=== PATIENT | male | born 1930 | race Caucasian/White ===

== ENCOUNTER 2016-10-10 14:37 | Inpatient (IN) | payer MEDICARE ==
[~2016-10-10] VITALS: Ht 172.7 cm; Wt 100.8 kg
[~2016-10-10 14:37] MED LIST: ALEEVE PO; ECO81 PO; FEOSOL65 M1 PO; FOLIC ACID1 MG PO; GUAIFENESI100 MG/52 PO; KLOR-CON M2020 MEQ; LAC30L PO; LASIX40 MG PO; LEVAQUIN750 MG PO; MEDDP PO; METFORMIN ER500 M1 PO; METOPROLOL TART25 M1 PO; PRI20 PO; PROAIR HFA0.09 MG/A1 INH; SYNTHROID0.05 MG PO; TERAZOSIN HCL2 MG PO; VITAMIN B121000 MCG PO; VITAMIN C500 MG PO; VITAMIN D32000 I2 PO; ZES10 PO; ZOC20 PO
[2016-10-10 16:43] LABS: microscopic required? NO
[2016-10-10 16:52] LABS: urine erythrocyte NEGATIVE (NEGATIVE)
[2016-10-10 16:53] LABS: CALCIUM 8.4 mg/dL (8.5-10.1); CHLORIDE SERUM 104 mmol/L (98-107); CREATININE SERUM 1.1 mg/dL (0.7-1.3); GLUCOSE SERUM 441 mg/dL (74-106); POTASSIUM SERUM 4.8 mmol/L (3.5-5.1); SODIUM SERUM 135 mmol/L (136-145)
[2016-10-10 16:55] LABS: PLATELET COUNT 50 x10^3mcL (130-400); RED CELL DISTRIBUTION WIDTH 14.6 % (11.5-14.5)
[2016-10-10 16:58] LABS: ALBUMIN 2.9 g/dL (3.4-5.0); ALKALINE PHOSPHATASE 166 U/L (46-116); ALT/SGPT 33 U/L (16-63); AST/SGOT 22 U/L (15-37); BILIRUBIN TOTAL 1.21 mg/dL (0.20-1.00); TOTAL PROTEIN, SERUM 5.7 g/dL (6.4-8.2)
[2016-10-10 17:07] LABS: BAND NEUTROPHIL 0 % (0-10); BASOPHIL 0 % (0-2); MONOCYTE 7 % (0-7); SEGMENTED NEUTROPHILS 54 % (37-75); rbc morphology (normal/abnorm) ABNORMAL (NORMAL)
[2016-10-10 18:20] LABS: PHOSPHOROUS 3.3 mg/dL (2.5-4.9)
[2016-10-10 18:28] VITALS: BP 134/45
[2016-10-10 18:28] LABS: FREE T4 0.94 ng/dL (0.76-1.46); FREE THYROXINE INDEX 1.8 ug/dL (1.4-4.5); T4(THYROXINE) 4.9 ug/dL (4.7-13.3)
[2016-10-10 18:29] LABS: T3 TOTAL 0.74 ng/mL
[2016-10-10 18:31] VITALS: Ht 172.7 cm; Wt 100.8 kg
[2016-10-10 18:48] LABS: CHOLESTEROL/HDL RATIO 2.1
[2016-10-10 22:17] VITALS: BP 140/68
[2016-10-11 06:18] VITALS: BP 123/53
[2016-10-11 06:43] LABS: BASOPHIL % 0.9 % (0-2); RED CELL DISTRIBUTION WIDTH 14.4 % (11.5-14.5)
[2016-10-11 07:07] LABS: PLATELET COUNT 48 x10^3mcL (130-400)
[2016-10-11 07:27] LABS: CALCIUM 8.1 mg/dL (8.5-10.1); CHLORIDE SERUM 109 mmol/L (98-107); CREATININE SERUM 0.7 mg/dL (0.7-1.3); GLUCOSE SERUM 168 mg/dL (74-106); MAGNESIUM 2.1 mg/dL (1.8-2.4); PHOSPHOROUS 3.2 mg/dL (2.5-4.9); POTASSIUM SERUM 4.3 mmol/L (3.5-5.1); SODIUM SERUM 144 mmol/L (136-145)
[2016-10-11 09:14] VITALS: BP 114/80
[2016-10-11 13:02] VITALS: BP 124/73
[2016-10-11 18:17] VITALS: BP 138/69
[2016-10-11 21:28] VITALS: BP 152/69
[2016-10-12 06:18] LABS: RED CELL DISTRIBUTION WIDTH 14.4 % (11.5-14.5)
[2016-10-12 06:24] VITALS: BP 94/56
[2016-10-12 06:31] LABS: CALCIUM 8.1 mg/dL (8.5-10.1); CARBON DIOXIDE 26.1 mmol/L (21-32); CHLORIDE SERUM 110 mmol/L (98-107); CREATININE SERUM 0.7 mg/dL (0.7-1.3); GLUCOSE SERUM 95 mg/dL (74-106); MAGNESIUM 1.8 mg/dL (1.8-2.4); PHOSPHOROUS 3.6 mg/dL (2.5-4.9); POTASSIUM SERUM 3.7 mmol/L (3.5-5.1); SODIUM SERUM 140 mmol/L (136-145)
[2016-10-12 08:03] LABS: PLATELET COUNT 52 x10^3mcL (130-400)
[2016-10-12 09:52] VITALS: BP 102/48
[2016-10-12] MEDS ORDERED: LEVEMIR100 U/M1 SQ (10:18)
[2016-10-12] MEDS ORDERED: BG FS (10:18)
[2016-10-12 10:38] VITALS: BP 143/68
[2016-10-12 10:38] LABS: BAND NEUTROPHIL 1 % (0-10); BASOPHIL 0 % (0-2); MONOCYTE 9 % (0-7); SEGMENTED NEUTROPHILS 44 % (37-75)
[2016-10-12 10:40] LABS: PLATELET MORPHOLOGY PLATELETS DECREASED; rbc morphology (normal/abnorm) ABNORMAL (NORMAL)
[2016-10-12] MEDS ORDERED: C500500 MG PO (11:00)
[2016-10-12] MEDS ORDERED: NATURE'S BLEND F1 MG PO (11:19)
== END 2016-10-12 13:37 | disposition home health service (06) | DRG 637 ==
LOC: ED 14:37 → DU 17:15
PROVIDERS: Emergency Medicine; Family Medicine; ADMIT Family Medicine
DX: E11.65 Type 2 diabetes mellitus with hyperglycemia (principal); I50.43 Acute on chronic combined systolic (congestive) and diastolic (congestive) heart failure; N17.0 Acute kidney failure with tubular necrosis; D61.818 Other pancytopenia; E87.1 Hypo-osmolality and hyponatremia; E44.0 Moderate protein-calorie malnutrition; E11.51 Type 2 diabetes mellitus with diabetic peripheral angiopathy without gangrene; I11.0 Hypertensive heart disease with heart failure; I87.2 Venous insufficiency (chronic) (peripheral); N40.0 Benign prostatic hyperplasia without lower urinary tract symptoms; D53.9 Nutritional anemia, unspecified; E66.9 Obesity, unspecified; Z68.34 Body mass index [BMI] 34.0-34.9, adult; Z85.79 Personal history of other malignant neoplasms of lymphoid, hematopoietic and related tissues; Z79.84 Long term (current) use of oral hypoglycemic drugs
CPT/HCPCS: 36600; 82962; 83880; 84439; 97110-GP; 97116-GP; 97530-GP; J1815; J3535; J7030; Q0092

== ENCOUNTER 2017-08-07 20:33 | Inpatient (IN) | payer MEDICARE ==
[~2017-08-07] VITALS: Ht 172.7 cm; Wt 112.0 kg
[~2017-08-07 20:33] MED LIST changes: +BG FS; +C500500 MG PO; +LEVEMIR100 U/M1 SQ; +NATURE'S BLEND F1 MG PO
[2017-08-07 23:41] LABS: BASOPHIL % 0.5 % (0-2)
[2017-08-07 23:43] LABS: PLATELET COUNT 75 x10^3mcL (130-400); RED CELL DISTRIBUTION WIDTH 14.7 % (11.5-14.5)
[2017-08-07 23:45] LABS: CALCIUM 8.4 mg/dL (8.5-10.1); CARBON DIOXIDE 21.4 mmol/L (21-32); CHLORIDE SERUM 102 mmol/L (98-107); CREATININE SERUM 1.6 mg/dL (0.7-1.3); GLUCOSE SERUM 133 mg/dL (74-106); POTASSIUM SERUM 4.7 mmol/L (3.5-5.1); SODIUM SERUM 134 mmol/L (136-145)
[2017-08-07 23:49] LABS: ALKALINE PHOSPHATASE 120 U/L (46-116); ALT/SGPT 41 U/L (16-63); AMYLASE 49 U/L (25-115); AST/SGOT 48 U/L (15-37); BILIRUBIN TOTAL 3.6 mg/dL (0.20-1.00); LIPASE 143 IU/L (73-393); TOTAL PROTEIN, SERUM 6.2 g/dL (6.4-8.2)
[2017-08-07 23:50] LABS: ALBUMIN 3.3 g/dL (3.4-5.0)
[2017-08-07] MEDS ORDERED: LUMIGAN2.5 M1 (23:59)
[2017-08-08] MEDS ORDERED: CITRACAL PETITE1 TAB PO (00:02)
[2017-08-08] MEDS ORDERED: C500500 MG PO (00:02)
[2017-08-08] MEDS ORDERED: MIRALAX17 GM/Dose (00:03)
[2017-08-08 00:54] LABS: T3 TOTAL 0.9 ng/mL
[2017-08-08 01:04] LABS: PHOSPHOROUS 3.6 mg/dL (2.5-4.9)
[2017-08-08 01:21] LABS: FREE T4 1.1 ng/dL (0.76-1.46); T4(THYROXINE) 5.7 ug/dL (4.7-13.3)
[2017-08-08 02:54] VITALS: BP 130/59
[2017-08-08 03:30] LABS: RED BLOOD CELLS 3.34 M/mm3 (4.52-5.90)
[2017-08-08 05:21] VITALS: BP 131/62
[2017-08-08 06:13] LABS: BASOPHIL % 0.3 % (0-2); RED CELL DISTRIBUTION WIDTH 14.4 % (11.5-14.5)
[2017-08-08 06:15] LABS: PLATELET COUNT 66 x10^3mcL (130-400)
[2017-08-08 06:40] LABS: IRON 147 ug/dL (65-170); TOTAL IRON BINDING CAPACITY 285 ug/dL (250-450)
[2017-08-08 06:43] LABS: CALCIUM 8.1 mg/dL (8.5-10.1); CARBON DIOXIDE 20.4 mmol/L (21-32); CHLORIDE SERUM 104 mmol/L (98-107); CREATININE SERUM 2.1 mg/dL (0.7-1.3); GLUCOSE SERUM 119 mg/dL (74-106); MAGNESIUM 2.2 mg/dL (1.8-2.4); PHOSPHOROUS 3.9 mg/dL (2.5-4.9); POTASSIUM SERUM 4.5 mmol/L (3.5-5.1); SODIUM SERUM 134 mmol/L (136-145)
[2017-08-08 09:17] VITALS: BP 136/67
[2017-08-08 12:38] VITALS: BP 148/72
[2017-08-08 17:15] VITALS: BP 93/51
[2017-08-08 19:54] LABS: microscopic required? YES; urine erythrocyte 3+ (NEGATIVE)
[2017-08-08 20:18] VITALS: BP 126/53
[2017-08-09 05:58] VITALS: BP 119/54
[2017-08-09 05:59] LABS: BASOPHIL % 0.4 % (0-2)
[2017-08-09 06:23] LABS: CALCIUM 7.9 mg/dL (8.5-10.1); CARBON DIOXIDE 20.1 mmol/L (21-32); CHLORIDE SERUM 110 mmol/L (98-107); CREATININE SERUM 1.7 mg/dL (0.7-1.3); GLUCOSE SERUM 114 mg/dL (74-106); POTASSIUM SERUM 4.9 mmol/L (3.5-5.1); SODIUM SERUM 141 mmol/L (136-145)
[2017-08-09 06:26] LABS: PLATELET COUNT 56 x10^3mcL (130-400); RED CELL DISTRIBUTION WIDTH 14.6 % (11.5-14.5)
[2017-08-09 09:47] VITALS: BP 122/63
[2017-08-09 10:14] VITALS: Ht 172.7 cm; Wt 112.0 kg
[2017-08-09 13:32] VITALS: BP 126/59
[2017-08-09 16:42] VITALS: BP 117/63
[2017-08-09 21:40] VITALS: BP 160/75
[2017-08-09 23:00] VITALS: BP 149/61
[2017-08-10 06:07] VITALS: BP 161/62
[2017-08-10 06:19] LABS: BASOPHIL % 0.3 % (0-2); RED CELL DISTRIBUTION WIDTH 14.5 % (11.5-14.5)
[2017-08-10 06:20] LABS: CALCIUM 8.2 mg/dL (8.5-10.1); CARBON DIOXIDE 21.4 mmol/L (21-32); CHLORIDE SERUM 114 mmol/L (98-107); CREATININE SERUM 0.9 mg/dL (0.7-1.3); GLUCOSE SERUM 109 mg/dL (74-106); POTASSIUM SERUM 4.6 mmol/L (3.5-5.1); SODIUM SERUM 145 mmol/L (136-145)
[2017-08-10 06:31] LABS: PLATELET COUNT 50 x10^3mcL (130-400)
[2017-08-10] MEDS ORDERED: FLO4 PO (08:01)
[2017-08-10] MEDS ORDERED: KEFLEX500 M1 PO (08:02)
[2017-08-10] MEDS ORDERED: LAC PO (08:02)
[2017-08-10] MEDS ORDERED: ZES10 PO (08:59)
[2017-08-10] MEDS ORDERED: PROSCAR5 MG PO (09:00)
[2017-08-10 09:30] VITALS: BP 137/59
[2017-08-10 11:24] VITALS: BP 137/59
[2017-08-10 11:58] VITALS: BP 137/59
[2017-08-10 17:00] VITALS: BP 134/64; BP 139/64
[2017-08-10 21:11] VITALS: BP 142/62
[2017-08-11 06:22] VITALS: BP 151/72
[2017-08-11 06:22] LABS: CARBON DIOXIDE 24.2 mmol/L (21-32); CHLORIDE SERUM 108 mmol/L (98-107); CREATININE SERUM 0.8 mg/dL (0.7-1.3); GLUCOSE SERUM 109 mg/dL (74-106); POTASSIUM SERUM 4.2 mmol/L (3.5-5.1); SODIUM SERUM 140 mmol/L (136-145)
[2017-08-11 06:36] LABS: BASOPHIL % 0.6 % (0-2)
[2017-08-11 06:54] LABS: PLATELET COUNT 55 x10^3mcL (130-400); RED CELL DISTRIBUTION WIDTH 14.6 % (11.5-14.5)
[2017-08-11 10:03] VITALS: BP 151/69
[2017-08-11 14:29] VITALS: BP 149/72
[2017-08-11 16:04] VITALS: BP 149/72
[2017-08-11 17:11] VITALS: BP 141/67
== END 2017-08-11 18:35 | DRG 697 ==
LOC: ED 20:33 → DU 23:17
PROVIDERS: Emergency Medicine; Family Medicine Sports Medicine
PROC: 0T9B70Z Drainage of Bladder with Drainage Device, Via Natural or Artificial Opening (ICD-10-PCS; principal; 2017-08-08)
DX: N35.9 Urethral stricture, unspecified (principal); N17.0 Acute kidney failure with tubular necrosis; E87.1 Hypo-osmolality and hyponatremia; E44.1 Mild protein-calorie malnutrition; N40.0 Benign prostatic hyperplasia without lower urinary tract symptoms; Z96.653 Presence of artificial knee joint, bilateral; E11.51 Type 2 diabetes mellitus with diabetic peripheral angiopathy without gangrene; E11.22 Type 2 diabetes mellitus with diabetic chronic kidney disease; I12.9 Hypertensive chronic kidney disease with stage 1 through stage 4 chronic kidney disease, or unspecified chronic kidney disease; N18.9 Chronic kidney disease, unspecified; R33.9 Retention of urine, unspecified; R74.0 Nonspecific elevation of levels of transaminase and lactic acid dehydrogenase [LDH]; E83.51 Hypocalcemia; D64.9 Anemia, unspecified; D69.6 Thrombocytopenia, unspecified; Z68.38 Body mass index [BMI] 38.0-38.9, adult; Z91.013 Allergy to seafood; Z98.49 Cataract extraction status, unspecified eye; Z79.899 Other long term (current) drug therapy; Z87.01 Personal history of pneumonia (recurrent)
CPT/HCPCS: 82962; 83880; 84439; 97110-GP; 97116-GP; 97530-GP; J0696; J7030; Q0092

== ENCOUNTER 2018-04-30 11:18 | Inpatient (IN) | payer MEDICARE ==
[2018-04-30] VITALS (9 sets, daily range): BP systolic 79–118; BP diastolic 31–53; Ht 175.3 cm; Wt 104.3 kg
[~2018-04-30] VITALS: Ht 175.3 cm; Wt 104.3 kg
[~2018-04-30 11:18] MED LIST changes: +CITRACAL PETITE1 TAB PO; +FLO4 PO; +KEFLEX500 M1 PO; +LAC PO; +LUMIGAN2.5 M1; +MIRALAX17 GM/Dose; +PROSCAR5 MG PO
[2018-04-30 11:57] LABS: CALCIUM 7.8 mg/dL (8.5-10.1); CARBON DIOXIDE 18.6 mmol/L (21-32); CHLORIDE SERUM 102 mmol/L (98-107); CREATININE SERUM 1.5 mg/dL (0.7-1.3); GLUCOSE SERUM 161 mg/dL (74-106); POTASSIUM SERUM 3.7 mmol/L (3.5-5.1); SODIUM SERUM 134 mmol/L (136-145)
[2018-04-30 11:58] LABS: RED CELL DISTRIBUTION WIDTH 14.9 % (11.5-14.5)
[2018-04-30 12:01] LABS: ALKALINE PHOSPHATASE 113 U/L (46-116); ALT/SGPT 27 U/L (16-63); AST/SGOT 32 U/L (15-37); BILIRUBIN TOTAL 4.37 mg/dL (0.20-1.00)
[2018-04-30 12:18] LABS: ALBUMIN 2.8 g/dL (3.4-5.0); TOTAL PROTEIN, SERUM 5.7 g/dL (6.4-8.2)
[2018-04-30 12:31] LABS: BAND NEUTROPHIL 11 % (0-10); BASOPHIL 0 % (0-2); MONOCYTE 2 % (0-7); SEGMENTED NEUTROPHILS 82 % (37-75)
[2018-04-30 12:32] LABS: rbc morphology (normal/abnorm) ABNORMAL (NORMAL)
[2018-04-30 12:33] LABS: PLATELET MORPHOLOGY PLATELETS DECREASED
[2018-04-30 12:39] LABS: PLATELET COUNT 45 x10^3mcL (130-400)
[2018-04-30 13:10] LABS: CHOLESTEROL/HDL RATIO 1.9
[2018-04-30 13:13] LABS: FREE T4 0.77 ng/dL (0.76-1.46)
[2018-04-30 13:14] LABS: T3 TOTAL 0.55 ng/mL
[2018-04-30 13:15] LABS: FREE THYROXINE INDEX 1.6 ug/dL (1.4-4.5); T4(THYROXINE) 4.1 ug/dL (4.7-13.3)
[2018-04-30] MEDS ORDERED: SUNMARK OMEPRAZ20 MG PO (13:37)
[2018-04-30] MEDS ORDERED: TOPROL XL25 MG PO (13:37)
[2018-04-30] MEDS ORDERED: LISINOPRIL10 MG PO (13:38)
[2018-04-30] MEDS ORDERED: VITAMIN-D1000 IU PO (13:38)
[2018-04-30] MEDS ORDERED: FUROSEMIDE20 MG PO (13:38)
[2018-04-30] MEDS ORDERED: VITAMIN B121000 MCG PO (13:38)
[2018-04-30] MEDS ORDERED: EFFER-K10 MEQ PO (13:40)
[2018-04-30] MEDS ORDERED: LACTULOSE10 GM/152 PO (13:41)
[2018-04-30] MEDS ORDERED: LEVOXYL0.05 MG PO (13:41)
[2018-04-30] MEDS ORDERED: TERAZOSIN HCL2 MG PO (13:41)
[2018-04-30] MEDS ORDERED: NATURE'S BLEND F1 MG PO (13:41)
[2018-04-30 13:54] LABS: UA SPECIFIC GRAVITY 1.025 (1.005-1.035); microscopic required? YES; urine erythrocyte 3+ (NEGATIVE)
[2018-05-01] VITALS (7 sets, daily range): BP systolic 108–134; BP diastolic 52–94
[2018-05-01 03:07] LABS: BASOPHIL % 0.1 % (0-2)
[2018-05-01 03:13] LABS: CALCIUM 7.4 mg/dL (8.5-10.1); CARBON DIOXIDE 16.7 mmol/L (21-32); CHLORIDE SERUM 104 mmol/L (98-107); CREATININE SERUM 1.7 mg/dL (0.7-1.3); GLUCOSE SERUM 171 mg/dL (74-106); MAGNESIUM 1.8 mg/dL (1.8-2.4); POTASSIUM SERUM 4.5 mmol/L (3.5-5.1); SODIUM SERUM 134 mmol/L (136-145)
[2018-05-01 03:33] LABS: RED CELL DISTRIBUTION WIDTH 14.6 % (11.5-14.5)
[2018-05-01 03:34] LABS: PLATELET COUNT 33 x10^3mcL (130-400)
[2018-05-01 12:59] LABS: CREATININE UR 108.4 mg/dL
[2018-05-02 04:59] VITALS: BP 134/57
[2018-05-02 06:27] LABS: CALCIUM 8.1 mg/dL (8.5-10.1); CHLORIDE SERUM 107 mmol/L (98-107); CREATININE SERUM 1.5 mg/dL (0.7-1.3); GLUCOSE SERUM 96 mg/dL (74-106); POTASSIUM SERUM 5.3 mmol/L (3.5-5.1); SODIUM SERUM 137 mmol/L (136-145)
[2018-05-02 06:28] LABS: PHOSPHOROUS 3.2 mg/dL (2.5-4.9)
[2018-05-02 07:42] LABS: PLATELET COUNT 58 x10^3mcL (130-400); RED CELL DISTRIBUTION WIDTH 14.8 % (11.5-14.5)
[2018-05-02 08:48] LABS: ATYPICAL LYMPH 1 %; BAND NEUTROPHIL 2 % (0-10); BASOPHIL 0 % (0-2); MONOCYTE 5 % (0-7); SEGMENTED NEUTROPHILS 89 % (37-75)
[2018-05-02 08:49] LABS: rbc morphology (normal/abnorm) ABNORMAL (NORMAL)
[2018-05-02 08:51] VITALS: BP 136/62
[2018-05-02 08:51] LABS: PLATELET MORPHOLOGY PLATELETS DECREASED
[2018-05-02 12:42] VITALS: BP 122/53
[2018-05-02 13:21] LABS: microalbumin:creatinine ratio 610.4 (0.0-30.0)
[2018-05-02 18:16] VITALS: BP 147/98
[2018-05-02 21:04] VITALS: BP 139/55
[2018-05-03 05:31] VITALS: BP 150/77
[2018-05-03 06:40] LABS: CALCIUM 8.3 mg/dL (8.5-10.1); CARBON DIOXIDE 24.4 mmol/L (21-32); CHLORIDE SERUM 108 mmol/L (98-107); CREATININE SERUM 1.2 mg/dL (0.7-1.3); GLUCOSE SERUM 116 mg/dL (74-106); POTASSIUM SERUM 4.9 mmol/L (3.5-5.1); SODIUM SERUM 139 mmol/L (136-145)
[2018-05-03 07:19] LABS: BASOPHIL % 0.4 % (0-2)
[2018-05-03 07:23] LABS: RED CELL DISTRIBUTION WIDTH 14.6 % (11.5-14.5)
[2018-05-03 08:57] LABS: PLATELET COUNT 47 x10^3mcL (130-400)
[2018-05-03 09:37] VITALS: BP 114/53
[2018-05-03 13:55] VITALS: BP 131/62
[2018-05-03 17:35] VITALS: BP 139/34
[2018-05-03 18:30] VITALS: BP 139/34
[2018-05-03 21:03] VITALS: BP 107/44
[2018-05-04 05:04] VITALS: BP 141/68
[2018-05-04 06:28] LABS: CARBON DIOXIDE 24.4 mmol/L (21-32); CHLORIDE SERUM 107 mmol/L (98-107); CREATININE SERUM 1.2 mg/dL (0.7-1.3); GLUCOSE SERUM 126 mg/dL (74-106); POTASSIUM SERUM 4.8 mmol/L (3.5-5.1); SODIUM SERUM 137 mmol/L (136-145)
[2018-05-04 07:02] LABS: BASOPHIL % 0.6 % (0-2); RED CELL DISTRIBUTION WIDTH 13.8 % (11.5-14.5)
[2018-05-04 07:12] LABS: PLATELET COUNT 41 x10^3mcL (130-400)
[2018-05-04 08:30] VITALS: BP 114/52
[2018-05-04] MEDS ORDERED: ROC1I IV (11:10)
[2018-05-04 12:30] VITALS: BP 133/57
[2018-05-04 17:00] VITALS: BP 129/60
[2018-05-04 20:37] VITALS: BP 113/54
[2018-05-05 05:21] VITALS: BP 103/58
[2018-05-05 06:35] LABS: CARBON DIOXIDE 23.7 mmol/L (21-32); CHLORIDE SERUM 105 mmol/L (98-107); GLUCOSE SERUM 109 mg/dL (74-106); POTASSIUM SERUM 4.3 mmol/L (3.5-5.1); SODIUM SERUM 134 mmol/L (136-145)
[2018-05-05 06:53] LABS: BASOPHIL % 0.5 % (0-2); RED CELL DISTRIBUTION WIDTH 14.5 % (11.5-14.5)
[2018-05-05 06:54] LABS: PLATELET COUNT 55 x10^3mcL (130-400)
[2018-05-05 07:59] LABS: MAGNESIUM 1.6 mg/dL (1.8-2.4); PHOSPHOROUS 3.4 mg/dL (2.5-4.9)
[2018-05-05 09:10] VITALS: BP 133/56
[2018-05-05 12:26] VITALS: BP 107/59
[2018-05-05 16:15] VITALS: BP 130/73
[2018-05-05 20:51] VITALS: BP 112/48
[2018-05-06 05:11] VITALS: BP 131/56
[2018-05-06 06:16] LABS: CALCIUM 8.1 mg/dL (8.5-10.1); CARBON DIOXIDE 25.4 mmol/L (21-32); CHLORIDE SERUM 104 mmol/L (98-107); CREATININE SERUM 1.1 mg/dL (0.7-1.3); GLUCOSE SERUM 121 mg/dL (74-106); POTASSIUM SERUM 4.8 mmol/L (3.5-5.1); SODIUM SERUM 136 mmol/L (136-145)
[2018-05-06 06:18] LABS: MAGNESIUM 1.9 mg/dL (1.8-2.4); PHOSPHOROUS 3.7 mg/dL (2.5-4.9)
[2018-05-06 07:48] LABS: BASOPHIL % 0.5 % (0-2); RED CELL DISTRIBUTION WIDTH 14.4 % (11.5-14.5)
[2018-05-06 07:50] LABS: PLATELET COUNT 71 x10^3mcL (130-400)
[2018-05-06 08:30] VITALS: BP 130/60
[2018-05-06 11:19] VITALS: BP 130/60
[2018-05-06 12:07] VITALS: BP 121/55
== END 2018-05-06 17:20 | DRG 871 ==
LOC: ED 11:18 → IC 12:33 → DU 12:33 → IC 14:09 → DU 14:13 → IC 17:34 → DU 05-01 18:13
PROVIDERS: Emergency Medicine; Internal Medicine; Internal Medicine Cardiovascular Disease; Internal Medicine Nephrology
PROC: B246ZZ4 Ultrasonography of Right and Left Heart, Transesophageal (ICD-10-PCS; principal; 2018-05-05 14:00)
DX: A41.9 Sepsis, unspecified organism (principal); J69.0 Pneumonitis due to inhalation of food and vomit; J96.01 Acute respiratory failure with hypoxia; I50.43 Acute on chronic combined systolic (congestive) and diastolic (congestive) heart failure; N17.0 Acute kidney failure with tubular necrosis; E43 Unspecified severe protein-calorie malnutrition; I13.0 Hypertensive heart and chronic kidney disease with heart failure and stage 1 through stage 4 chronic kidney disease, or unspecified chronic kidney disease; E87.1 Hypo-osmolality and hyponatremia; N39.0 Urinary tract infection, site not specified; D68.69 Other thrombophilia; C90.00 Multiple myeloma not having achieved remission; R65.20 Severe sepsis without septic shock; E87.5 Hyperkalemia; N18.3 Chronic kidney disease, stage 3 (moderate); E11.22 Type 2 diabetes mellitus with diabetic chronic kidney disease; K74.69 Other cirrhosis of liver; N40.0 Benign prostatic hyperplasia without lower urinary tract symptoms; D53.9 Nutritional anemia, unspecified; Z68.32 Body mass index [BMI] 32.0-32.9, adult; Z79.84 Long term (current) use of oral hypoglycemic drugs
CPT/HCPCS: 36600; 82962; 83880; 84439; 85378; 87804; 94150; 97110-GP; 97116-GP; 97530-GP; C9113; J0456; J0696; J1200; J1610; J1815; J1885; J1940; J2250; J2310; J2543; J2916; J2930; J3010; J3370; J3490; J7030; J7040; J7050; J7620; Q0092